=== PATIENT | female | born 1965 | race African-American/Black ===

== ENCOUNTER 2025-04-02 15:27 | Inpatient (IN) | payer MEDICAID ==
[~2025-04-02] VITALS: Ht 170.2 cm; Wt 69.5 kg
[2025-04-02] MEDS: HEPARIN DRIP-CARDIAC**PHARMACIST-TO-DOSE IV ONE (15:55)
--- NOTE | 2025-04-02 15:56 | ELECTROCARDIOGRAPH REPORT ---
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
[2025-04-02] MEDS ORDERED: heparin 10,000 units/1 ML INJ IV PRN (16:10)
--- NOTE | 2025-04-02 16:14 | Physician Documentation ---
History of Present Illness ~ Stated Complaint: CARDIAC WORK UP Time Seen by MD: 15:37 HPI 59-year-old female who presents to the emergency department in transfer from [facility], patient was diagnosed with a non ST-elevation UT, started on heparin and transferred to our hospital for further cardiac care. Patient states she has had chest pain for the past three days it seemed to be better yesterday and worse again today. Day of Onset: Apr 02, 2025 Timing/Duration: days Medication Reconciliation Allergies: Coded Allergies: No Known Allergies (Unverified , 04/02/25) Scheduled Metoprolol/Hydrochlorothiazide 100/50 MG* (Lopressor Hct 100/50 MG*), 25 TAB PO DAILY, (Reported) Rosuvastatin Calcium (Rosuvastatin Calcium), 1 TAB PO DAILY, (Reported) Triamterene/Hydrochlorothiazid (Triamterene-Hctz 37.5-25 Mg Cp), 1 CAP PO DAILY, (Reported) Progress Results/Orders Results/Orders Orders - TONY GENTILE DO Hs Troponin I W Calculations (04/02/25 18:50) Electrocardiogram (04/02/25 ) Page Hospitalist (04/02/25 16:37) Fill Out Med Reconciliation (04/02/25 16:37) Completed Orders - TONY GENTILE DO Hs Troponin I W Calculations (04/02/25 15:50) Pt Inr (04/02/25 15:50) Cbc/Diff (04/02/25 15:50) CMP (04/02/25 15:50) Heparin Drip Acs*Rph-To-Dose* (Heparin D (04/02/25 15:55) Stat Ekg (04/02/25 15:54) No Initial Heparin Drip Bolus (No Initia (04/02/25 16:10) PTT (04/02/25 17:01) Medications Received in ER Medications (Trade) Dose Ordered Sig/Tom Route PRN Reason Start Time Stop Time Status Last Admin Dose Admin Heparin Sodium/ Dextrose 250 ml @ 8 mls/hr [id number] PRN IV TO MAINTAIN PTT WITHIN RANGE 04/02/25 16:10 04/02/25 17:34 8 MLS/HR (Lipitor tablet) 80 mg ONCE ONCE PO 04/02/25 17:05 04/02/25 17:12 DC 04/02/25 17:39 80 MG (Toprol XL (24-hour) tablet) 25 mg ONCE STAT PO 04/02/25 17:02 04/02/25 17:12 DC 04/02/25 17:40 25 MG Vital Signs 04/02/25 15:40 Temp 98.4 Pulse 82 Resp 14 B/P (MAP) 150/105 Pulse Ox 96 O2 Flow Rate 0 EKG/XRAY/CT/US/VASC/MRI EKG : Additional Comment Sinus rhythm rate of 76 normal axis, poor R-wave progression LVH based on voltage nonspecific T-wave abnormalities, repolarization abnormality in the inferior leads, abnormal EKG. Consults/PCP Consults/PCP : Additional Comment 4:30 p.m. discussed case with Cardiology Dr. Blake he recommends admission to the hospital continue with heparin drip and he will consult. Departure Disposition: ADMITTED INPATIENT Impression: Primary Impression: Myocardial infarction Additional Impression: Chest pain at rest Referrals: NO PRIMARY CARE PROVIDER (PCP) Critical Care Note Total Time (mins): 40 Critical Care Note Critical care time exclusive of other billable procedures critical care time spent managing impending cardiovascular collapse in acute myocardial infarction. Signature Scribe Signature: None Attestation: Dictated by myself TONY GENTILE DO Apr 02, 2025 16:14
[2025-04-02] MEDS: HEPARIN DRIP INITAL BOLUS --- DO NOT GIVE/ORDER MC ONE (17:05)
[2025-04-02] MEDS ORDERED: magnesium sulf-water 4G/100mL 100 ML IV PRN (17:05)
[2025-04-02] MEDS ORDERED: morphine 2 MG/ML inj. syringe IV PRN ×2 (17:05)
[2025-04-02] MEDS ORDERED: potassium Cl 20 mEq SR tablet PO PRN (17:05)
[2025-04-02] MEDS ORDERED: mag hydrox/Alum hydrox/simeth 30ml oral suspension PO PRN (17:05)
[2025-04-02] MEDS ORDERED: magnesium sulf-water 2g/50mL 50 ML IV PRN (17:05)
[2025-04-02] MEDS ORDERED: nitroGLYCERIN 0.4mg SUBLingual tab SL PRN (17:05)
[2025-04-02] MEDS ORDERED: magnesium hydroxide 30ml (MOM) UD suspension PO PRN (17:05)
[2025-04-02] MEDS ORDERED: ondansetron/PF 4mg/2ml inj IV PRN (17:05)
[2025-04-02] MEDS ORDERED: potassium Cl 40MEQ/1/2NS 520ml 520 ML IV PRN (17:05)
[2025-04-02] MEDS ORDERED: acetaminophen 325mg tablet PO PRN (17:05)
[2025-04-02 17:23] LABS: BASOPHILS # (AUTO) 0.1 X10'3 (0-0.2); BASOPHILS % (AUTO) 0.5 % (0-1); EOSINOPHILS % (AUTO) 0.3 % (0-6); HEMATOCRIT 46.9 % (35.0-45.0); HEMOGLOBIN 15.8 g/dl (12.0-16.0); LYMPHOCYTES # (AUTO) 2.2 X10'3 (1.1-4.8); LYMPHOCYTES % (AUTO) 21.9 % (21-51); MEAN CORPUSCULAR HEMOGLOBIN 29.4 PG (27.0-31.0); MEAN CORPUSCULAR HGB CONC 33.7 g/dL (33.0-36.5); MEAN CORPUSCULAR VOLUME 87.3 FL (78-98); MEAN PLATELET VOLUME 7.2 FL (7.4-10.4); MONOCYTES # (AUTO) 0.7 X10'3 (0-0.9); MONOCYTES % (AUTO) 7.1 % (2-12); NEUTROPHILS # (AUTO) 6.9 X10'3 (1.8-7.7); NEUTROPHILS % (AUTO) 70.2 % (42-75); PLATELET COUNT 340 X10'3 (140-440); RED BLOOD COUNT 5.37 X10'6 (4.20-5.60); RED CELL DISTRIBUTION WIDTH 15.3 % (11.5-14.5); WHITE BLOOD COUNT 9.8 X10'3 (4.5-11.0)
[2025-04-02] MEDS: heparin 25,000 UNIT/250ml bag 250 ML IV PRN (17:34)
[2025-04-02] MEDS: atorvastatin 20mg tablet PO ONE (17:39)
[2025-04-02] MEDS: metoprolol succinate 25mg (24-HOUR) SR. Tablet PO STA (17:40)
[2025-04-02] MEDS: MESSAGE TO NURSING IV ONE (17:40)
[2025-04-02 17:42] LABS: APTT 41 SECONDS (22-32); INR 1.1 INR; MAGNESIUM 2.1 MG/DL (1.5-2.4); POTASSIUM 3.4 MMOL/L (3.5-5.1)
[2025-04-02 17:45] LABS: ALANINE AMINOTRANSFERASE 21 U/L (12-78); ALBUMIN 4.1 G/DL (3.4-5.0); ALBUMIN/GLOBULIN RATIO 1.1 (1.1-1.5); ALKALINE PHOSPHATASE 119 IU/L (46-116); ANION GAP 14 (8-16); ASPARTATE AMINO TRANSFERASE 16 U/L (10-37); BILIRUBIN,TOTAL 0.6 MG/DL (0.1-1.0); BLOOD UREA NITROGEN 6 MG/DL (7-18); BUN/CREATININE RATIO 8.1 (10.0-20.0); CALCIUM 9.3 MG/DL (8.5-10.1); CHLORIDE 99 MMOL/L (99-107); CREATININE 0.74 MG/DL (0.40-0.90); GLUCOSE 97 MG/DL (70-104); POTASSIUM 3.6 MMOL/L (3.5-5.1); SODIUM 140 MMOL/L (135-145); TOTAL CARBON DIOXIDE 26.8 MMOL/L (24-32); TOTAL PROTEIN 7.7 G/DL (6.4-8.2); eCRCL 78 ML/MIN; eGFR > 90 ML/MIN
--- NOTE | 2025-04-02 17:45 | HISTORY AND PHYSICAL ---
History & Physical Providers to CC ~ History of Present Illness Reason for Admit\Complaint: NSTEMI History of Present Illness Mu Mahoney is a 79-year-old female with a past medical history of hypertension and hyperlipidemia who was transferred from [place] to [facility] ED with chief complaint of acute onset nonradiating chest pain x 3 days and findings of elevated troponins. Patient denies prior SC/CAD, CVA, cardiac arrhythmia, DVT/PE, or GIB. Patient denies palpitations, shortness of breath, abdominal pain, n/v/d. Initial diagnostic findings were notable for elevated troponin at 339, pending series. Patient is to be admitted for further workups treatment. Allergies: Coded Allergies: No Known Allergies (Unverified , 04/02/25) Past Medical History Past Medical History Hypertension Hyperlipidemia Past Surgical History Surgical History Comment Denies Past Social History Social History Comment Alcohol: Occasionally Tobacco: Denies, never Illicit drug use: Denies Living situation: Lives at home with spouse ROS ROS Other than positives in HPI, all 14 review of systems are negative Exam Vitals: Vital Signs Date Time Temp Pulse Resp B/P (MAP) Pulse Ox O2 Delivery O2 Flow Rate FiO2 04/02/25 15:40 98.4 82 14 150/105 96 0 General: A&Ox 3, NAD HEENT: Normocephalic, PERRLA Neck: Supple, trachea midline, no JVD Chest: Clear to auscultation bilaterally Cardiovascular: RRR, S1&S2 Abdomen: Soft and nontender Extremities: No cyanosis/clubbing/or edema Central Nervous System: CN II-XII intact, no focal deficits Musculoskeletal: No paraspinal muscle tenderness, no muscle spasm Skin: Warm and intact Diagnostic Data Last Recorded Lab Results: 04/02/25 1714 04/02/25 1714 Diagnostic Data: Laboratory Tests Test 04/02/25 17:14 Prothrombin Time 11.0 SECONDS (9.0-12.0) INR International Normalized Ratio 1.1 INR Activated Partial Thromboplast Time 41 SECONDS (22-32) H Coagulation Comments Additional Plan # NSTEMI # HTN # Hyperlipidemia -EKG sinus at 76bpm without ST elevation -initial trop 339, start heparin drip metoprolol succ, high-intensity statin, prn hydralazine -Dr. Jocelynn Blake consulted, follow troponin series Code Status: Full code I spent a total of 35 minutes discussing Advanced Care Planning measures with the patient. Advance care planning: Discussed with patient the importance of advance care planning in case of emergent situation. We discussed various resuscitative measures/ ACP with the patient at the time of admission. Patient voiced understanding and patient has decided on a full code status. Date of Service: Apr 02, 2025 Billing Provider: NITA CAMPOS Common Visit Codes: 60727-[id number] INP/OBS CARE (HIGH) Secondary Visit Codes: 00384-[id number] CARE PLAN 30 MINUTES NITA CAMPOS Apr 02, 2025 17:45
[2025-04-02 17:46] LABS: CHOL/HDL RATIO 2.4 (0.00-4.99); CHOLESTEROL 244 MG/DL (0-200); HDL CHOLESTEROL 100 MG/DL (35-60); LDL CHOLESTEROL 118 MG/DL (50-100); TRIGLYCERIDES 50 MG/DL (20-135)
[2025-04-02] MEDS ORDERED: hydrALAZINE 20mg/ml inj. IV PRN (17:55)
[2025-04-02] MEDS ORDERED: METO1TAB12 PO (17:56)
[2025-04-02] MEDS ORDERED: ROSU5TAB51 PO (17:56)
[2025-04-02] MEDS ORDERED: TRIA1CAP88 PO (17:56)
[2025-04-02 18:22] LABS: HEMOGLOBIN A1C 5.3 % (4.5-6.2)
[2025-04-02] MEDS: docusate sod 100mg capsule PO SCH (20:00)
[2025-04-02] MEDS: K and/or MAG REPLACEMENT MC SCH (20:24)
[2025-04-02] MEDS: aspirin 81mg, enteric-coated 1 TAB TABLET.DR PO ONE (21:08)
[2025-04-02 22:00] VITALS: BP 118/82; PULSE 68; RESP 16; TEMP 97.2; O2SAT 97
[2025-04-03] VITALS (13 sets, daily range): BP systolic 83–111; BP diastolic 54–75; PULSE 50–72; RESP 14–18; TEMP 97.3–97.7; O2SAT 95–99
[2025-04-03] MEDS: MESSAGE TO NURSING IV ONE ×2 (00:30→07:42)
[2025-04-03 06:35] LABS: BASOPHILS # (AUTO) 0.1 X10'3 (0-0.2); BASOPHILS % (AUTO) 0.8 % (0-1); EOSINOPHILS # (AUTO) 0.1 X10'3 (0-0.9); EOSINOPHILS % (AUTO) 1.3 % (0-6); HEMOGLOBIN 14.8 g/dl (12.0-16.0); LYMPHOCYTES # (AUTO) 2.7 X10'3 (1.1-4.8); LYMPHOCYTES % (AUTO) 33.4 % (21-51); MEAN CORPUSCULAR HEMOGLOBIN 29.2 PG (27.0-31.0); MEAN CORPUSCULAR HGB CONC 33.6 g/dL (33.0-36.5); MEAN PLATELET VOLUME 7.6 FL (7.4-10.4); MONOCYTES # (AUTO) 0.7 X10'3 (0-0.9); MONOCYTES % (AUTO) 8.9 % (2-12); NEUTROPHILS # (AUTO) 4.5 X10'3 (1.8-7.7); NEUTROPHILS % (AUTO) 55.6 % (42-75); PLATELET COUNT 321 X10'3 (140-440); RED BLOOD COUNT 5.06 X10'6 (4.20-5.60); RED CELL DISTRIBUTION WIDTH 15.1 % (11.5-14.5); WHITE BLOOD COUNT 8.1 X10'3 (4.5-11.0)
[2025-04-03 07:05] LABS: ALANINE AMINOTRANSFERASE 20 U/L (12-78); ALBUMIN 3.6 G/DL (3.4-5.0); ALBUMIN/GLOBULIN RATIO 1.1 (1.1-1.5); ALKALINE PHOSPHATASE 104 IU/L (46-116); ANION GAP 13 (8-16); ASPARTATE AMINO TRANSFERASE 14 U/L (10-37); BILIRUBIN,TOTAL 0.6 MG/DL (0.1-1.0); BLOOD UREA NITROGEN 12 MG/DL (7-18); BUN/CREATININE RATIO 13.2 (10.0-20.0); CALCIUM 9.1 MG/DL (8.5-10.1); CHLORIDE 100 MMOL/L (99-107); CREATININE 0.91 MG/DL (0.40-0.90); GLUCOSE 103 MG/DL (70-104); POTASSIUM 3.1 MMOL/L (3.5-5.1); SODIUM 138 MMOL/L (135-145); TOTAL CARBON DIOXIDE 24.8 MMOL/L (24-32); TOTAL PROTEIN 6.8 G/DL (6.4-8.2); eCRCL 63 ML/MIN; eGFR 76 ML/MIN
[2025-04-03] MEDS: aspirin 81mg, enteric-coated 1 TAB TABLET.DR PO SCH (07:51)
[2025-04-03] MEDS: potassium Cl 20 mEq SR tablet PO PRN (07:52)
[2025-04-03] MEDS: metoprolol succinate 25mg (24-HOUR) SR. Tablet PO SCH (07:56)
[2025-04-03] MEDS ORDERED: iohexol 350MG/ML 100ml bottle IV ONE (09:55)
[2025-04-03] MEDS ORDERED: midazolam 1 mg/ML 2ml injection ONE (09:55)
[2025-04-03] MEDS ORDERED: fentaNYL/PF 50MCG/1 ML 2ML syringe ONE (09:55)
[2025-04-03] MEDS ORDERED: heparin 1,000unit/ml 10ml vial 10 ML ONE (09:55)
[2025-04-03] MEDS ORDERED: LIDOcaine 1% (10mg/ml) 2ml vial ONE (09:55)
[2025-04-03] MEDS ORDERED: verapamil 2.5 mg/ml inj IV ONE (09:55)
[2025-04-03] MEDS ORDERED: nitroGLYCERIN 500mcg/5mL D5W 5 ML IV ONE (09:56)
[2025-04-03] MEDS ORDERED: METO-395 PO (10:57)
[2025-04-03] MEDS ORDERED: ASPI-1071 PO (10:57)
[2025-04-03] MEDS ORDERED: ATOR20TA66 PO (10:57)
[2025-04-03] MEDS ORDERED: OXAZEpam 15mg capsule PO PRN (11:20)
[2025-04-03] MEDS ORDERED: ondansetron/PF 4mg/2ml inj IV PRN (11:20)
[2025-04-03] MEDS ORDERED: proCHLORperazine 10 MG/2 ml inj IV PRN (11:20)
--- NOTE | 2025-04-03 12:29 | CARDIOLOGY REPORT ---
DATE OF SERVICE: 04/03/2025 DICTATING PHYSICIAN: Bhavesh Blake MD DATE OF STUDY: 04/03/2025 PROCEDURES: * Left heart catheterization. * Selective coronary angiography. * Left ventriculography. * Conscious sedation monitoring time for 15 minutes. INDICATION: Non-STEMI. PHYSICIAN: Bhavesh Blake MD PROCEDURE: After informed consent was obtained, the patient was brought to the cardiac catheter builder in a fasting state where the patient was prepped and draped in the usual sterile manner. After adequate anesthesia was obtained using 1% lidocaine to the right wrist, a 5-Azeri sheath was inserted into the right radial artery using a modified Seldinger technique. Thereafter, using a cocktail of heparin, verapamil and nitroglycerin, the cocktail was given via the sheath in the radial artery to prevent coronary vasospasm and for anticoagulation. Next, using an Ultimate-2 catheter, the catheter was advanced under fluoroscopy guidance into the ascending aorta. The catheter was then manipulated to engage the left coronary system and coronary angiography of the left system was obtained. Next, the catheter was disengaged and manipulated to engage the right coronary artery and selective coronary angiography of the right coronary artery was obtained. Thereafter, the catheter was disengaged from the right coronary artery and manipulated to advance into the left ventricle where left ventriculography in the YE position was obtained. The catheter was then removed. Hemostasis was obtained using the radial band. HEMODYNAMICS: For the patient's hemodynamics, please refer to the event log. Left ventricular end diastolic pressure was 7 mmHg. FINDINGS: The patient has a left dominant system. All of the patient's coronary arteries are normal caliber vessels, free of significant disease. IMPRESSION: * Tortuous, normal coronary arteries. * Normal left ventricular function. * Left ventricular end diastolic pressure is 7 mmHg. Bhavesh Blake MD TID: [id number] RECEIPT: [id number] [place]
[2025-04-03] MEDS: potassium Cl 20 mEq SR tablet PO STA (13:26)
[2025-04-03 14:27] LABS: PRO BRAIN NATRIURETIC PEPTIDE 130 PG/ML (0-125)
--- NOTE | 2025-04-03 15:19 | DISCHARGE SUMMARY ---
Discharge Summary Providers to CC ~ Discharge Summary Admission Diagnosis: NSTEMI Hospital Course DATE OF ADMISSION: 04/02/25 DATE OF DISCHARGE: 04/03/25 Discharge Diagnosis\Comment: NSTEMI HTN Aortic aneurysm, 4.0 cm Hyperlipidemia Hypokalemia Operations\Procedures: Coronary angiogram (04/03/25) Consultants: Operations Developer Dr. Jeffry Blake Complications: None Condition on DC: Stable New Medications: Aspirin (Ecotrin*) 81 Mg Tablet.dr 1 TAB PO DAILY for 30 Days, #30 TAB.SR Atorvastatin Calcium (Atorvastatin Calcium) 20 Mg Tablet 40 MG PO HS for 30 Days, #30 TAB Continued Medications: Triamterene/Hydrochlorothiazid (Triamterene-Hctz 37.5-25 Mg Cp) 37.5 Mg-25 Mg Capsule 1 CAP PO DAILY for 30 Days, #30 CAP 0 Refills Discontinued Medications: Metoprolol/Hydrochlorothiazide 100/50 MG* (Lopressor Hct 100/50 MG*) 100 Mg/50 Mg Tablet 25 TAB PO DAILY, TAB Rosuvastatin Calcium (Rosuvastatin Calcium) 5 Mg Tablet 1 TAB PO DAILY for high cholesterol for 30 Days, #30 TAB 0 Refills Discharge Summary: History of Present Illness Mu Mahoney is a 59-year-old female with a past medical history of hypertension and hyperlipidemia who was transferred from [place] to [facility] ED with chief complaint of acute onset nonradiating chest pain x 3 days and findings of elevated troponin series in 300s. Patient denies prior NM/CAD, CVA, cardiac arrhythmia, DVT/PE, or GIB. Patient denies palpitations, shortness of breath, abdominal pain, n/v/d. Initial diagnostic findings were notable for elevated troponin at 339, pending series. EKG indicated sinus at 76bpm without ST elevation. Patient is to be admitted for further workups treatment. Hospital Course Patient was started on heparin drip, statin, aspirin, metoprolol. Case was consulted with the on-call salad bar clerk Dr. Jeffry Blake and patient underwent coronary angiogram on 04/03/25 with no significant findings of normal caliber vessles of all coronary arteries caliber vessels without significant disease. TTE showed normal overall systolic function with LVEF of 60 %, RVSP 13 mmHg, without significant valvular heart disease. Also, revealed ascending aortic aneurysm measuring at 4.0cm which warrants monitoring outpatient. Patient did not experience further complications throughout the entire hospital stay and remained clinically and hemodynamically stable. Patient was seen and examined on the day of discharge. On day of discharge, vss and labs notable for mild hypokalemia and otherwise unremarkable. Patient received potassium supplement prior to discharge. Patient denies chest pain. Telemetry remained in sinus in 60s-80s. All labs, diagnostic workups, discharge plan discussed with patient in details during visit before discharge. All questions and concerns answered to the best of my professional knowledge. Patient ambulates independently. Patient is to be discharged to home to self and to follow-up with PCP within 2 weeks. A bbx therapy will be held on discharge due to bradycardia in 50s and soft blood pressure until follow-up and re-evaluation with PCP. Physical Exam General: A&Ox 3, NAD HEENT: Normocephalic, PERRLA Neck: Supple, trachea midline, no JVD Chest: Clear to auscultation bilaterally Cardiovascular: RRR, S1&S2 GI: Soft and nontender Extremities: No cyanosis/clubbing/or edema EXECUTIVE ASSISTANT: CN II-XII intact, no focal deficits Musculoskeletal: No paraspinal muscle tenderness, no muscle spasm Skin: Warm and intact *Problems/Diagnosis: (1) Chest pain at rest Status: Acute (2) Myocardial infarction Status: Acute Total Time Spent on D/C: > 30 Minutes Date of Service: Apr 03, 2025 Billing Provider: NITA CAMPOS Common Visit Codes: 93412-JIG/OBS DISCH DAY >30min NITA CAMPOS Apr 03, 2025 15:19
[2025-04-03] MEDS ORDERED: atorvastatin 20mg tablet PO SCH (21:00)
--- NOTE | 2025-04-04 03:14 | CARDIOLOGY REPORT ---
APPROVED REPORT EXAM: Comprehensive 2D, Doppler, and color-flow Echocardiogram. Patient Location: 3024 A Blood Pressure: 97/62 mmHg Heart Rate: 65 bpm Rhythm: Sinus Rhythm Indications [place]/Myocardial Infarction S/P Cath procedure (04/03/2025 [facility]) Hx of Hypertension Elevated Troponins NSTEMI Enamel Buffer: Domo Blake MD (Consult, Cath procedure) Previous echo: None 2D Dimensions RVDd 2.8 cm LA Diam4.0 cm RA Minor3.0 cmAortic Root(2D) 3.6 cm LVOT Diameter 2.27 (1.8-2.4cm) Ao Asc Diam.4.00 cm IVC 14.65 mmCO 4.3 L/min M-Mode Dimensions RVDd 2.41 (2.1-3.2cm) IVSd 1.36 (0.7-1.1cm) LVDd 4.94 (4.0-5.6cm) Aortic Root 3.11 (2.2-3.7cm) PWd 1.24 (0.7-1.1cm) Aortic Cusp Exc 2.18 (1.5-2.0cm) IVSs 1.40 cm MV EPSS 0.9 (<0.5cm) LVDs 3.27 (2.0-3.8cm) FS (%) 33 % PWs 1.40 cm ESV(Teich) 41.3 ml LVEF(%) 61 (>50%) Aortic Valve AoV Peak Hernan. 143.7 cm/s AoV VTI 27.7 cm AO Peak GR. 8.3 mmHg AO Mean GR. 4 mmHg LVOT VTI 22.19 cm LVOT Peak Hernan. 111.9 cm/s YVETTE(VTI)/BSA 3.24 cm2/m2 YVETTE (VTI) 3.24 cm2 AI P 1/2 Time 596 ms Mitral Valve MV E Velocity 49.9 cm/s MV Peak Gr. 2 mmHg MV DECEL TIME 200 ms MV A Velocity 80.3 cm/s MV PHT 68 ms E/A Ratio 0.6 MVA (PHT) 3.24 cm2 MV VMax63.0 cm/s Tricuspid Valve TR P. Velocity 183 cm/s TR Peak Gr. 13 mmHg LEFT VENTRICLE Normal LV size and wall thickness. Overall systolic function is normal. Overall LVEF is 60%. RIGHT VENTRICLE RV is normal size and function. Estimated PA systolic pressure is 13 mmHg. ATRIA The left atrium size is normal. The right atrium size is normal. The right atrium size is normal. AORTIC VALVE Trileaflet AV appears sclerotic without stenosis. Mild eccentric insufficiency. MITRAL VALVE Mild MV annular thickening without stenosis. Trace regurgitation. TRICUSPID VALVE TV appears structurally normal with trace regurgitation. PULMONIC VALVE Normal PV without stenosis, physiologic insufficiency. GREAT VESSELS The aortic root is normal in size. Ascending aorta is dilated. It measures 4.0 cm. IVC is normal in s ize and collapses greater than 50% with inspiration. PERICARDIUM Normal pericardium. No pericardial effusion seen. Other Information Study Quality: Adequate Conclusion Normal LV size and wall thickness. Overall systolic function is normal. Overall LVEF is 60%. RV is normal size and function. Estimated PA systolic pressure is 13 mmHg. The left atrium size is normal. The right atrium size is normal. Trileaflet AV appears sclerotic without stenosis. Mild eccentric insufficiency. Mild MV annular thickening without stenosis. Trace regurgitation. TV appears structurally normal with trace regurgitation. The aortic root is normal in size. Ascending aorta is dilated. It measures 4.0 cm. Normal pericardium. No pericardial effusion seen.
== END 2025-04-03 15:57 | disposition home or self-care (01) | DRG 190 ==
LOC: ER 15:27 → ED HOLD 17:09 → PCU 3S 22:46
PROVIDERS: ADMIT Nurse Practitioner Family; ATTEND Nurse Practitioner Family
PROC: 4A023N7 Measurement of Cardiac Sampling and Pressure, Left Heart, Percutaneous Approach (ICD-10-PCS; principal; 2025-04-03)
PROC: B2111ZZ Fluoroscopy of Multiple Coronary Arteries using Low Osmolar Contrast (ICD-10-PCS; 2025-04-03)
PROC: B2151ZZ Fluoroscopy of Left Heart using Low Osmolar Contrast (ICD-10-PCS; 2025-04-03)
DX: I21.4 Non-ST elevation (NSTEMI) myocardial infarction (principal); E78.5 Hyperlipidemia, unspecified; E87.6 Hypokalemia; I10 Essential (primary) hypertension; Z79.899 Other long term (current) drug therapy
CPT/HCPCS: 36415; 80053; 80061; 83036; 83735; 83880; 84132; 84484; 85025; 85610; 85730; 87081; 93005; 93306; 93458; 96365; 99152; 99291; A6258; C1894; G0378; J1644; J2003; J2250; J3010; J3490; J7030; Q9967